=== PATIENT | male | born 1955 ===

== ENCOUNTER 2016-07-29 18:02 | Emergency (ER) ==
--- NOTE | 2016-07-29 19:25 | UC ---
Shoulder Pain HPI - HPI Summary HPI Summary: painful rash on right upper arm/shoulder for 8 days--- - History of Current Complaint Chief Complaint: UCUpperExtremity Stated Complaint: SHOULDER INJURY Time Seen by Provider: 07/29/16 19:19 Hx Obtained From: Patient Onset/Duration: Sudden Onset, Lasting Days - 8, Still Present Timing: Constant Severity Initially: Moderate Severity Currently: Moderate Location Of Pain: Is Discrete @ - right shoulder and anterior upper arm Pain Intensity: 10 Pain Scale Used: 0-10 Numeric Character: Aching, Throbbing, Burning Aggravating Factor(s): Movement Alleviating Factor(s): Nothing Associated Signs And Symptoms: Positive: Redness - vesicular lesions Related History: Dominant Hand Right - Allergies/Home Medications Allergies/Adverse Reactions: Allergies Allergy/AdvReac Type Severity Reaction Status Date / Time No Known Allergies Allergy Verified 07/29/16 18:57 Home Medications: Home Medications Naproxen TAB* [Naprosyn 250 mg TAB*] 500 mg PO BID PRN 07/29/16 [History Confirmed 07/29/16] PMH/Surg Hx/FS Hx/Imm Hx Endocrine History Of: Denies: Diabetes, Thyroid Disease Cardiovascular History Of: Denies: Cardiac Disorders, Hypertension Respiratory History Of: Denies: COPD, Asthma - Surgical History Surgical History: Yes Surgery Procedure, Year, and Place: hernia - Family History Known Family History: Positive: None Family History: no reported cardio vascular issues in family lineage - Social History Occupation: Employed Full-time - self employed [employer] Lives: With Family Alcohol Use: Daily Substance Use Type: None Smoking Status (MU): Heavy Every Day Tobacco Smoker Type: Cigarettes Have You Smoked in the Last Year: Yes Household Exposure Type: Cigarettes Cessation Counseling: Counseled 3+Min - 10 Min Review of Systems Constitutional: Negative Skin: Rash - vesicular lesions with erythemotous base some scabbing right anterior upper arm and shoulder Eyes: Negative ENT: Negative Respiratory: Negative Cardiovascular: Negative Gastrointestinal: Negative Genitourinary: Negative Motor: Negative Neurovascular: Negative Musculoskeletal: Negative Neurological: Negative Psychological: Negative All Other Systems Reviewed And Are Negative: Yes Physical Exam Triage Information Reviewed: Yes Appearance: Ill-Appearing - appears older than stated age, Pain Distress, Thin Vital Signs: Initial Vital Signs Temp 98.3 F 07/29/16 18:54 Pulse 87 05/16/17 18:54 Resp 16 07/29/16 18:54 BP 130/84 07/29/16 18:54 Pulse Ox 97 07/29/16 18:54 Vital Signs Reviewed: Yes Eye Exam: Normal Eyes: Positive: Conjunctiva Clear ENT Exam: Normal ENT: Positive: Normal ENT inspection, Hearing grossly normal, TMs normal. Negative: Nasal congestion, Nasal drainage, Tonsillar swelling, Tonsillar exudate Neck exam: Normal Neck: Positive: Supple, Nontender, No Lymphadenopathy Respiratory Exam: Normal Respiratory: Positive: Chest non-tender, Lungs clear, Normal breath sounds, No respiratory distress, No accessory muscle use Cardiovascular Exam: Normal Cardiovascular: Positive: RRR, No Murmur, Pulses Normal, Brisk Capillary Refill Musculoskeletal Exam: Normal Musculoskeletal: Positive: ROM Intact, No Edema, Strength Limited @ - right shoulder due to pain Neurological Exam: Normal Neurological: Positive: Alert, Muscle Tone Normal Psychological Exam: Normal Skin: Positive: rashes - as described Shoulder Course/Dx - Course Course Of Treatment: pain control, confirmatory lab for shingles, rest increase fluids, nicotine cesation information - Differential Dx/Diagnosis Differential Diagnosis/HQI/PQRI: Sprain, Strain Provider Diagnoses: Nicotine dependant, shingles right upper arm Discharge - Discharge Plan Condition: Stable Disposition: HOME Prescriptions: Gabapentin CAP(*) [Neurontin 300 CAP(*)] 300 mg PO BEDTIME #15 cap traMADol TAB* [Ultram*] 50 mg PO Q6HR PRN #30 tab MDD 4 PRN Reason: pain Patient Education Materials: How to Stop Smoking (ED), Shingles (ED) Referrals: [facility] [Outside] - 1 Week Non Staff,Doctor [Medical Doctor] -
[2016-07-31 19:11] LABS: HS/VZ Source RIGHT ARM; Varicella Zoster Result Positive (Negative); Varicella Zoster Source RIGHT ARM
--- NOTE | 2016-08-04 20:34 | UC ---
Progress - Progress Note Progress Note: Reviewed HZV/VZV results that were collected on 07/29/16. VZV positive. RN to call patient. Will check to see if the patient is taking antivirals. PCP information is not available. DENICE green check for current PCP information as well so that this information can be properly faxed to the PCP. (preceding text written by Dr. Sissy Parekh, but in an ED progress note, generated by a scribe , and not signed at this time 08/04/16, 20:30-this text and following is written by Dr. Ryan Waite) Rash was already 8 days old at time of the specimen 07/29/16, and antivirals were not prescribed. Please call pt and check on condition. If pt would like antivirals could prescribe, but doubt they would help at this late stage in the illness. PCP was supposed to be call to get established, so encourage pt to get a PCP. Return to UC if any new or worsening symptoms.
== END 2016-07-29 19:38 | disposition home or self-care (01) ==
LOC: UCEAST 18:02
DX: F17.210 Nicotine dependence, cigarettes, uncomplicated (principal); B02.9 Zoster without complications; R21 Rash and other nonspecific skin eruption
CPT/HCPCS: 87529; 87798; 99212; G0463